=== PATIENT | female | born 2000 ===

== ENCOUNTER 2021-05-25 09:50 | Inpatient (IN) | payer OTHER ==
[2021-05-25] VITALS (105 sets, daily range): BP systolic 111–116; BP diastolic 66–75; PULSE 96–106; TEMP 98.1–99.5; O2SAT 95–100
[~2021-05-25] VITALS: Ht 162.6 cm; Wt 51.4 kg
[2021-05-25] MEDS ORDERED: LANTUS100 U/ML SQ (10:17)
[2021-05-25] MEDS ORDERED: NOVOLOG 100U100 U/M1 SQ (10:18)
[2021-05-25 10:37] LABS: BASO # 0.1 K/mm3 (0.0-0.2); BASO % 0.6 % (0.0-2.0); GRAN # 14.9 K/mm3 (1.4-6.5); GRAN % 85.2 % (42.2-75.2); HEMATOCRIT 49.6 % (35.0-45.0); LYMPH # 1.5 K/mm3 (1.2-3.4); LYMPH % 8.3 % (20.0-51.0); MEAN CELL VOLUME 80 fl (80.0-95.0); MEAN CORPUSCULAR HEMOGLOBIN 28 pg (26-32); MEAN CORPUSCULAR HGB CONC 34 g/dl (33.0-37.0); MEAN PLATELET VOLUME 12.1 fl (7.4-10.4); MONO # 0.9 K/mm3 (0.1-0.6); MONO % 5.3 % (1.7-9.3); PLATELET COUNT 414 K/mm3 (130-400); RED BLOOD COUNT 6.19 M/mm3 (4.10-5.30); REDCELL DISTRIBUTION WIDTH-CV 14.1 % (11.5-14.5)
[2021-05-25 11:00] LABS: ALANINE AMINOTRANSFERASE 13 U/L (0-55); ALBUMIN 4.8 gm/dL (3.5-5.0); ALKALINE PHOSPHATASE 122 U/L (40-150); AST,SGOT 12 U/L (5-34); BILIRUBIN,TOTAL 0.6 mg/dL (0.2-1.2); BLOOD UREA NITROGEN 14 mg/dL (8-21); C-REACTIVE PROTEIN 0.33 mg/dL (0.00-0.50); CALCIUM 9.3 mg/dL (8.4-10.2); CHLORIDE 101 mmol/L (98-107); CREATININE, serum 1.82 mg/dL (0.57-1.11); LIPASE 25 U/L (8-78); POTASSIUM 4.2 mmol/L (3.5-4.5); SODIUM 132 mmol/L (136-145); TOTAL PROTEIN 8.8 gm/dL (6.2-8.1)
[2021-05-25 11:03] LABS: CARBON DIOXIDE < 5 mmol/L (22-29); GLUCOSE 465 mg/dL (70-99)
[2021-05-25 12:19] LABS: COLLECTION METHOD CLEAN CATCH
[2021-05-25 12:33] LABS: MUCOUS Present (NOT PRESENT); PH 5 (5-8); SQUAMOUS EPITHELIAL 0-2 /hpf (0-10); URINE APPEARANCE Hazy (CLEAR/HAZY); URINE BACTERIA None Seen /hpf (NONE SEEN); URINE BILIRUBIN Negative (NEGATIVE); URINE BLOOD 1+ (NEGATIVE); URINE COLOR Straw (YELLOW); URINE GLUCOSE 3+ (NEGATIVE); URINE KETONE 2+ (NEGATIVE); URINE LEUKOCYTE ESTERASE 1+ (NEGATIVE); URINE NITRATE Negative (NEGATIVE); URINE PROTEIN(semi-quant) 1+ (NEGATIVE); URINE UROBILINOGEN Negative (NEGATIVE)
[2021-05-25 14:28] LABS: CALCIUM 8.5 mg/dL (8.4-10.2); CREATININE, serum 1.18 mg/dL (0.57-1.11)
--- NOTE | 2021-05-25 18:28 | NUR ---
PT ADMITTED FROM ER DUE TO DKA. PT ALERT AND ORIENTED BUT TIRED. 18G IV IN LEFT ARM. 20 GAUGE IV IN RIGHT ARM. PT OFFERS NO COMPLAINTS AT THIS TIME.
[2021-05-25 18:51] LABS: BLOOD UREA NITROGEN 9 mg/dL (8-21); CALCIUM 8.3 mg/dL (8.4-10.2); CHLORIDE 113 mmol/L (98-107); CREATININE, serum 1.21 mg/dL (0.57-1.11); GLUCOSE 219 mg/dL (70-99); POTASSIUM 3.8 mmol/L (3.5-4.5); SODIUM 136 mmol/L (136-145)
[2021-05-25 18:53] LABS: CARBON DIOXIDE < 5 mmol/L (22-29)
--- NOTE | 2021-05-25 20:14 | NUR ---
Spoke with Taryn software developer mid level. States patient does not need to remain in isolation since initial Cov+ was 05/07/21.
[2021-05-25 23:14] LABS: CALCIUM 8.4 mg/dL (8.4-10.2); CREATININE, serum 1.37 mg/dL (0.57-1.11); POTASSIUM 3.6 mmol/L (3.5-4.5)
[2021-05-26] VITALS (628 sets, daily range): BP systolic 92–126; BP diastolic 56–86; PULSE 75–115; TEMP 98–98.7; O2SAT 93–100
[2021-05-26 03:07] LABS: CALCIUM 8.4 mg/dL (8.4-10.2); CREATININE, serum 1.23 mg/dL (0.57-1.11)
--- NOTE | 2021-05-26 07:34 | NUR ---
RECEIVED BEDSIDE SHIFT REPORT FROM DARSHANA MITCHELL. PATIENT CURRENTLY ON INSULIN GTT, POTASSIUM AND RECEIVING D5W 1/2 NS WELL. VSS. PATIENT HAS BEEN VOIDING IN TOILET AND HAS 2 IV SITES.
[2021-05-26 08:21] LABS: BASO % 0.4 % (0.0-2.0); EOS % 0.3 % (0.0-4.0); GRAN % 70.5 % (42.2-75.2); HEMATOCRIT 41.8 % (35.0-45.0); LYMPH # 1.2 K/mm3 (1.2-3.4); LYMPH % 17.3 % (20.0-51.0); MEAN CELL VOLUME 77 fl (80.0-95.0); MEAN CORPUSCULAR HGB CONC 36 g/dl (33.0-37.0); MEAN PLATELET VOLUME 11.7 fl (7.4-10.4); MONO # 0.8 K/mm3 (0.1-0.6); MONO % 10.9 % (1.7-9.3); REDCELL DISTRIBUTION WIDTH-CV 13.9 % (11.5-14.5)
[2021-05-26 08:37] LABS: CALCIUM 8.8 mg/dL (8.4-10.2); CREATININE, serum 1.01 mg/dL (0.57-1.11); POTASSIUM 3.1 mmol/L (3.5-4.5)
[2021-05-26 08:39] LABS: HEMOGLOBIN 14.9 g/dl (12.0-15.0); MEAN CORPUSCULAR HEMOGLOBIN 28 pg (26-32); PLATELET COUNT 250 K/mm3 (130-400)
--- NOTE | 2021-05-26 09:35 | NUR ---
Initial visit; Patient appeared to be uncomfortable and near tears. She thanked Kettle Skimmer for offering comfort and prayer this morning. Kettle Skimmer offered God's blessings and will keep Tyler in her prayers.
--- NOTE | 2021-05-26 09:45 | NUR ---
PATIENT'S MOTHER, ARIC AT BEDSIDE TO VISIT PATIENT. UPDATE GIVEN.
[2021-05-26 10:01] LABS: CALCIUM 8.7 mg/dL (8.4-10.2); CREATININE, serum 0.97 mg/dL (0.57-1.11); POTASSIUM 3.2 mmol/L (3.5-4.5)
--- NOTE | 2021-05-26 10:03 | NUR ---
CRITICAL CO2 REPORTED TO DR. MACEDO
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
--- NOTE | 2021-05-26 13:45 | NUR ---
RADHA FROM DIETARY AT BEDSIDE TO DISCUSS ADVANCING DIET AND EDUCATE PATIENT ON DIABETES.
[2021-05-26 14:53] LABS: CALCIUM 8.1 mg/dL (8.4-10.2); CREATININE, serum 0.89 mg/dL (0.57-1.11); POTASSIUM 4.7 mmol/L (3.5-4.5)
--- NOTE | 2021-05-26 15:03 | NUR ---
CRITICAL CO2 REPORTED TO DR. MACEDO. ORDERS RECEIVED.
[2021-05-26 18:35] LABS: CALCIUM 8.3 mg/dL (8.4-10.2); CREATININE, serum 0.92 mg/dL (0.57-1.11); POTASSIUM 3.6 mmol/L (3.5-4.5)
--- NOTE | 2021-05-26 19:47 | NUR ---
Received report from DARSHANA Perez. All medications verified and all questions answered. Patient currerently on insulin gtt running at 5mls/hr wtih D5 1/2NS C 20MEQ K+ of fluids running at 200mls/hr. Patient is A&O x 4 resting in bed comfortably watching tv. VSS. No concerns or complaints noted at this time. Will resume care of patient at this time.
[2021-05-26 22:51] LABS: CALCIUM 8.2 mg/dL (8.4-10.2); CREATININE, serum 0.79 mg/dL (0.57-1.11); POTASSIUM 3.4 mmol/L (3.5-4.5)
--- NOTE | 2021-05-26 23:30 | NUR ---
This RN transferred patient from IMCU room 16 to ICU room 5. All belongings sent with patient. Patient transferred via wheelchair.
[2021-05-27] VITALS (414 sets, daily range): BP systolic 101–127; BP diastolic 69–82; PULSE 71–109; TEMP 98–98.3; O2SAT 88–100
[2021-05-27 02:32] LABS: CALCIUM 8.2 mg/dL (8.4-10.2); CREATININE, serum 0.71 mg/dL (0.57-1.11)
[2021-05-27 02:48] LABS: POTASSIUM 2.8 mmol/L (3.5-4.5)
[2021-05-27 05:32] LABS: BASO % 0.6 % (0.0-2.0); EOS % 0.8 % (0.0-4.0); GRAN # 2.7 K/mm3 (1.4-6.5); GRAN % 54.7 % (42.2-75.2); HEMOGLOBIN 13.1 g/dl (12.0-15.0); LYMPH # 1.7 K/mm3 (1.2-3.4); LYMPH % 33.5 % (20.0-51.0); MEAN CELL VOLUME 77 fl (80.0-95.0); MEAN CORPUSCULAR HEMOGLOBIN 28 pg (26-32); MEAN CORPUSCULAR HGB CONC 36 g/dl (33.0-37.0); MEAN PLATELET VOLUME 11.8 fl (7.4-10.4); MONO # 0.5 K/mm3 (0.1-0.6); MONO % 10.2 % (1.7-9.3); PLATELET COUNT 203 K/mm3 (130-400); RED BLOOD COUNT 4.76 M/mm3 (4.10-5.30); REDCELL DISTRIBUTION WIDTH-CV 13.9 % (11.5-14.5)
[2021-05-27 05:39] LABS: HEMATOCRIT 36.7 % (35.0-45.0)
[2021-05-27 05:54] LABS: CALCIUM 8.2 mg/dL (8.4-10.2); CREATININE, serum 0.66 mg/dL (0.57-1.11); MAGNESIUM 1.7 mg/dL (1.7-2.2); POTASSIUM 3.2 mmol/L (3.5-4.5)
[2021-05-27] MEDS ORDERED: NOVOLOG 100U100 U/M1 SQ (14:48)
== END 2021-05-27 15:30 | disposition home or self-care (01) | DRG 637 ==
LOC: COL.ER 09:50 → IMCU 14:03 → ICU 14:03
PROVIDERS: Family Medicine; Physician Assistant; ADMIT Internal Medicine
DX: E10.10 Type 1 diabetes mellitus with ketoacidosis without coma (principal); U07.1 COVID-19; N17.9 Acute kidney failure, unspecified; E87.6 Hypokalemia; E86.0 Dehydration; D72.819 Decreased white blood cell count, unspecified
CPT/HCPCS: 99223-AI; 99233-AI; 99239; J1644; J1815; J2270; J2405; J3480; J7030; J7120